=== PATIENT | female | born 1945 | race Two or more races ===

== ENCOUNTER 2017-05-30 12:07 | Emergency (ER) | payer MEDICARE ==
[~2017-05-30] VITALS: Ht 157.5 cm; Wt 63.5 kg
[~2017-05-30 12:07] MED LIST: MECLIZINE HCL25 MG PO
--- NOTE | 2017-05-30 12:25 | Emergency Room Report ---
History of Present Illness General Chief Complaint: Abdominal Pain Source: Patient Present Illness HPI Patient is a 71-year-old female with a history of hypertension who presents today with complaints of vomiting that began 2 hours prior to arrival. She has had several episodes of emesis, last episode was on arrival is complaining of associated abdominal pain rated a 9/10 in severity stating it is intermittent and worse in the epigastric area. Patient denies any diarrhea, constipation, fever, chills or associated symptoms. Allergies: Coded Allergies: TETANUS (Verified Allergy, 04/15/12) Patient History Reviewed Nursing Documentation: PMH: Agreed, PSxH: Agreed Nursing Documentation-PM Past Medical History: No History, Except For Hx Cardiac Problems: No Hx Hypertension: Yes Hx Pacemaker: No Hx Asthma: No Hx COPD: No Hx Diabetes: No Hx Cancer: No Hx Gastrointestinal Problems: No Hx Dialysis: No Hx Neurological Problems: No Hx Cerebrovascular Accident: No Hx Seizures: No Review of Systems Gastrointestinal: Reports: abdominal pain, nausea, vomiting All Other Systems: negative except mentioned in HPI Physical Exam Vital Signs Date Time Temp Pulse Resp B/P (MAP) Pulse Ox O2 Delivery O2 Flow Rate FiO2 05/30/17 12:10 98.4 82 18 97/65 99 Room Air Sp02 EP Interpretation: reviewed, normal General Appearance: no apparent distress, alert, GCS 15, non-toxic Head: normocephalic, atraumatic Eyes: bilateral eye normal inspection, bilateral eye PERRL ENT: hearing grossly normal, normal pharynx, no angioedema, normal voice Neck: full range of motion, supple/symm/no masses Respiratory: chest non-tender, lungs clear, normal breath sounds, speaking full sentences Cardiovascular #1: regular rate, rhythm, no edema Cardiovascular #2: 2+ carotid (R), 2+ carotid (L), 2+ radial (R), 2+ radial (L) , 2+ dorsalis pedis (R), 2+ dorsalis pedis (L) Gastrointestinal: normal bowel sounds, soft, non-distended, no guarding, no rebound, other - tenderness to palpation in the right upper quadrant and epigastric area Rectal: deferred Genitourinary: normal inspection, no CVA tenderness Musculoskeletal: back normal, gait/station normal, normal range of motion, non- tender, calf tenderness Neurologic: alert, oriented x3, responsive, motor strength/tone normal, sensory intact, speech normal Psychiatric: judgement/insight normal, memory normal, mood/affect normal, no suicidal/homicidal ideation Reflexes: 3+ bicep (R), 3+ bicep (L), 3+ tricep (R), 3+ tricep (L), 3+ knee (R) , 3+ knee (L) Skin: normal color, no rash, warm/dry, well hydrated Lymphatic: no adenopathy Medical Decision Making PA Attestation Supervising physician is Dr. Davey Diagnostic Impression: Primary Impression: Nausea & vomiting Additional Impressions: Diarrhea Epigastric abdominal pain ER Course Patient with nausea, vomiting, diarrhea and epigastric abdominal pain. Labs are within normal limits, no leukocytosis. LFTs are within normal limits. Ultrasound showed duodenal diverticula. No evidence of cholecystitis or cholelithiasis. CT is within normal limits. An urine is negative for UTI. Multiple reevaluation to make on patient stating she is feeling much better. She's given Zofran and IV fluids with improvement. Abdomen is soft nontender and reevaluation. The patient is discharged home with Zofran and instructions increased by mouth fluids. Instructed to follow up with PCP for reevaluation. Patient understands this we will plan. Last Vital Signs Date Time Temp Pulse Resp B/P (MAP) Pulse Ox O2 Delivery O2 Flow Rate FiO2 05/30/17 12:10 98.4 82 18 97/65 99 Room Air Status: improved Disposition: HOME, SELF-CARE Condition: Stable Scripts Ondansetron Odt* (ZOFRAN ODT*) 4 Mg Tab.rapdis 4 MG ORAL Q6H Y for Nausea & Vomiting, #30 TAB Prov: Lynn Ma 05/30/17 Patient Instructions: Abdominal Pain, Adult, Viral Gastroenteritis, Adult Lynn Ma May 30, 2017 12:25
[2017-05-30] MEDS ORDERED: Sodium Chloride 500ML 500 ML IVPB ONE (12:30)
[2017-05-30] MEDS ORDERED: Morphine Sulfate 4mg/ml Inj IVP ONE (12:30)
[2017-05-30 13:05] LABS: MEAN CORPUSCULAR HEMOGLOBIN 31.1 PG (27.0-31.0); MEAN CORPUSCULAR HGB CONC 33.4 G/DL (32.0-36.0); MEAN CORPUSCULAR VOLUME 93 FL (80-99); MEAN PLATELET VOLUME 6.2 FL (6.5-10.1); PLATELET COUNT 290 K/UL (150-450); RED BLOOD COUNT 5.38 M/UL (4.20-5.40); RED CELL DISTRIBUTION WIDTH 12.8 % (11.6-14.8); WHITE BLOOD COUNT 6.4 K/UL (4.8-10.8)
[2017-05-30 13:55] LABS: ANION GAP 17 mmol/L (5-15); CALCIUM 8.6 MG/DL (8.5-10.1); CARBON DIOXIDE 22 MMOL/L (21-32); CHLORIDE 106 MMOL/L (98-107); POTASSIUM 3.6 MMOL/L (3.5-5.1); SODIUM 145 MMOL/L (136-145)
[2017-05-30 13:59] LABS: ALANINE AMINOTRANSFERASE 34 U/L (12-78); ALBUMIN/GLOBULIN RATIO 0.9 (1.0-2.7); ASPARTATE AMINO TRANSFERASE 22 U/L (15-37); LIPASE 92 U/L (73-393); TOTAL PROTEIN 7.6 G/DL (6.4-8.2)
--- NOTE | 2017-05-30 14:09 | Diagnostic Imaging Report ---
Indication: Quadrant pain, nausea, vomiting Technique: Bloom-scale and duplex images of the upper abdomen were obtained Comparison: None Findings: Gallbladder is unremarkable, without stones, wall thickening, nor pericholecystic fluid. Sonographic Staton's sign is negative. Common bile duct measures 6 mm in diameter. No intrahepatic biliary ductal dilatation. Liver demonstrates normal echogenicity, no focal abnormality. Portal vein and hepatic veins are patent. Pancreas demonstrates hypodense structure within or adjacent to the pancreatic head. This measures 2.6 cm in diameter. Spleen is unremarkable. Left kidney measures 11.4 cm in length. Right kidney measures 10.9 cm length. Both kidneys demonstrate normal echogenicity. There is no hydronephrosis. Small hyperechoic focus is seen in the left renal sinus, without shadowing. . Non-aneurysmal abdominal aorta . . Impression: Negative for gallstones or dilated ducts Hypoechoic focus within or adjacent to the pancreatic head. This is nonperistaltic. Suspect that this represents the duodenum or perhaps a duodenal diverticulum, but other processes, including pseudocyst or cystic neoplasm not excludable. Consider further evaluation with CT scan of the pancreas Non-shadowing hyperechoic structure in the left renal sinus, nonobstructive calcification not excludable Findings discussed by phone with nurse practitioner Lynn in the emergency room at the time of interpretation
[2017-05-30 14:13] LABS: BAND NEUTROPHILS % (MANUAL) 0 % (0-8); BASOPHILS % (MANUAL) 0 % (0-2); EOSINOPHILS % (MANUAL) 1 % (0-3); LYMPHOCYTES % (MANUAL) 15 % (20-45); NEUTROPHILS % (MANUAL) 81 % (45-75); PLATELET ESTIMATE ADEQUATE; TOTAL CELLS COUNTED 100
[2017-05-30 14:14] LABS: PLATELET MORPHOLOGY NORMAL
[2017-05-30 14:49] VITALS: BP 126/54
--- NOTE | 2017-05-30 15:34 | Diagnostic Imaging Report ---
Clinical Indication: PAIN 71-year-old female with complaints of vomiting beginning 2 hours prior to arrival Technique: No oral contrast utilized, per emergency room physician request IV administration nonionic contrast. Venous phase spiral acquisition obtained through the abdomen and pelvis. Multiplanar reconstructions were generated. Total dose length product 654 mGycm. CTDIvol(s) 13 mGy. Dose reduction achieved using automated exposure control Comparison: Reference made to abdominal ultrasound performed one hour earlier Findings: Focally borderline distended duodenal bulb or duodenal diverticulum is seen immediately lateral to the pancreatic head, presumably accounts for the abnormalities on recent ultrasound. This is featureless, for some reason not collapsed like the surrounding structures, was seen to be aperistaltic on recent ultrasound. The remainder of the gastric antrum and duodenum are nondistended. The appendix is not definitely identified, but no findings to suggest acute appendicitis are evident. The distal small bowel is diffusely fluid-filled, upper limits of normal in caliber, with prominent slightly enhancing mucosa. No transition to collapsed distal small bowel is demonstrated. The ascending colon is also fluid-filled, as are portions of the sigmoid and rectum. Linear density is seen within the pelvic small bowel lumen, may reflect an ingested tablet or foreign body. The stomach demonstrates nonspecific prominence of the rugal folds. There is questionably a small sliding-type hiatal hernia. The liver is slightly hypoattenuating, consistent with fatty change. No focal abnormality demonstrated. The gallbladder, bile ducts, pancreas, spleen, right kidney are unremarkable. The left kidney demonstrates an interpolar region subcentimeter low-attenuation lesion which is too small to characterize. No renal or calculi, hydronephrosis, or hydroureter. The uterus and adnexal structures are unremarkable. No pelvic mass or adenopathy. No retroperitoneal or mesenteric mass or adenopathy. The included portions of the right breast demonstrate a 2 cm hypoattenuating lesion deep to the nipple. This demonstrates slightly greater than fluid attenuation. A second similar lesion is seen more laterally on the highest cut, measures 13 mm diameter. The included lung bases demonstrate some posterior dependent atelectatic change. The bones demonstrate degenerative spondylosis changes. Impression: Limit assessment of the GI tract, due to lack of enteric contrast administration The peripancreatic abnormality described on recent ultrasound is demonstrated on CT to represent either duodenal bulb or duodenal diverticulum Fluid-filled upper limits of normal caliber distal small bowel with slight mucosal enhancement, may represent mild enteritis changes. Somewhat prominent gastric fundal rugal folds, likely baseline for this patient but could indicate a component of gastritis Mild fatty liver 2 right breast nodules, possibly but not definitely benign simple cysts. Further followup with mammography and breast ultrasound is recommended. Ingested tablet or foreign body within the pelvic small bowel lumen Subcentimeter low-attenuation left renal lesion, too small to characterize, most likely a benign simple cortical cysts. No further followup is necessary Incidental findings as noted, including generous spondylosis, posterior dependent pulmonary atelectatic changes, small sliding-type hiatal hernia The CT scanner at [facility] is accredited by the [employer] and the scans are performed using protocols designed to limit radiation exposure to as low as reasonably achievable to attain images of sufficient resolution adequate for diagnostic evaluation.
[2017-05-30 16:06] LABS: APPEARANCE,URINE CLEAR; KETONES,URINE 3+ (NEGATIVE); LEUKOCYTE ESTERASE ,URINE NEGATIVE (NEGATIVE); NITRITE,URINE NEGATIVE (NEGATIVE); PH,URINE 8 (4.5-8.0); PROTEIN,URINE NEGATIVE (NEGATIVE); UROBILINOGEN,URINE NORMAL MG/DL (0.0-1.0)
[2017-05-30 16:17] LABS: BACTERIA,URINE OCCASIONAL /HPF; RBC,URINE 0-2 /HPF (0 - 2); SQUAMOUS EPITHELIAL CELL,UR FEW /LPF (NONE/OCC); WBC,URINE 0 /HPF (0 - 2)
[2017-05-30] MEDS ORDERED: ZOFRAN ODT4 MG ORAL (16:55)
[2017-05-30 17:04] VITALS: BP 126/54
== END 2017-05-30 17:02 | disposition home or self-care (01) ==
LOC: EMR 12:45
DX: R11.2 Nausea with vomiting, unspecified (principal); R19.7 Diarrhea, unspecified; R10.13 Epigastric pain; I10 Essential (primary) hypertension
CPT/HCPCS: 36415; 74177; 76700; 80053; 81001; 83690; 85007; 85025; 96361; 96374; 96375; 99284; J2270; J2405; Q9967